=== PATIENT | female | born 1940 | race Caucasian/White ===

== ENCOUNTER → 2016-11-11 | Day surgery (SDC) | payer MEDICARE, OTHER ==
[~2016-11-11] MED LIST: ADVIL200 M1 PO; ALBUTEROL0.83 MG/ML INH; CELEXA10 M1 PO; CLARITIN10 M2 PO; FLONASE ALLERG9.9 ML; HYDROCHLOROTHIA25 MG PO; LISINOPRIL10 MG PO; MONTELUKAST SOD10 MG PO; NORVASC10 MG PO; OMEPRAZOLE40 M1 PO; SYMBICORT INH; VENTOLIN INH
--- NOTE | ~2016-11-11 | OR ---
Unit #: [id number] #: [id number] Patient: ROBYN GUNN [id number] [address] [address] [id number] O MR#: [id number] NAME: ROBYN GUNN ROOM: Date of Procedure: 11/11/2016 Admission Date: 11/11/2016 Surgeon: Maximiliano Arellano M.D. : 1940 Attending Physician: Maximiliano Arellano M.D. OPERATIVE REPORT PRIMARY CARE PHYSICIAN Luigi Mejía M.D. PREOPERATIVE DIAGNOSIS The patient has presented with history of dysphagia. In addition, she needs a colorectal cancer screening and has come for screening colonoscopy. PROCEDURES PERFORMED 1. Upper gastrointestinal endoscopy and biopsy. 2. Upper gastrointestinal endoscopy and balloon dilation of distal esophageal stricture as well as colonoscopy with polypectomy. POSTOPERATIVE DIAGNOSES For upper endoscopy: 1. The patient had tight stricture in the distal esophagus. This was dilated using a 15 to 18 mm TTS balloon. 2. Small hiatus hernia. 3. Mild antral gastritis. 4. Rest of examination up to third part of duodenum was normal. A biopsy was obtained from the antrum for CLOtest. The distal esophageal stricture was dilated using a 15 to 18 mm TTS balloon. For colonoscopy: 1. The patient had 2 sessile polyps, 1 each in the sigmoid colon and rectum. The rectal polyp was about 2 cm in size and the sigmoid polyp was about 6 to 8 mm in size. Both were removed using snare polypectomy. In addition, the patient had moderate sigmoid and descending colon diverticulosis. 2. Rest of the examination up to cecum and terminal ileum was normal. The quality of prep was excellent. RECOMMENDATIONS 1. The patient is being started on omeprazole 40 mg p.o. b.i.d. She should increase the dose from 40 mg once a day to 40 mg b.i.d. 2. She will require repeat dilation with an 18 to 20 mm balloon and this was scheduled for 01/2017. 3. Follow up results of polyp histology. 4. Repeat colonoscopy in 5 years. SEDATION USED MAC. DESCRIPTION OF PROCEDURE Unit #: [id number] #: [id number] Patient: ROBYN GUNN Following detailed explanation of potential risks and complications of an upper endoscopy and a colonoscopy, namely perforation, bleeding, and complications related to sedation, the patient was brought to GI lab and laid in the left lateral decubitus position. Lubricated tip of the Olympus video upper endoscope was passed through the bite block into the proximal esophagus under direct vision. The entire esophageal mucosa was examined, the patient was noted to have distal esophageal benign stricture. This was quite tight and was dilated to some extent by the shaft of the upper GI scope. The scope was then advanced into the gastric cavity after traversing a small to medium sized hiatus hernia. Mucosa of the fundus, body, and antrum was examined. Mild antral erythema was noted indicating antral gastritis. Pylorus was intubated with visualization of the normal duodenal bulb and second and third part of the duodenum. Upon withdrawal and retroflexion, incisura, cardia, and greater curve examined and biopsy obtained from the antrum for CLOtest. The scope was withdrawn in the distal esophagus. A 15 to 18 mm TTS balloon was passed through the accessory channel of the scope and step-up dilation of the distal esophageal stricture was done. Minimal bleeding was noted after fracturing the stricture. The area was thoroughly washed with water and good hemostasis was achieved. The scope was then withdrawn all the way up to pharynx. The patient also had evidence of ulcerative esophagitis involving the distal esophagus. The entire esophageal mucosa was examined all the way up to pharynx. No additional findings noted. The examination table was then turned by 180 degrees and the patient positioned for a colonoscopy. A digital rectal examination performed, which was normal. Lubricated tip of the Olympus video colonoscope was inserted through the anus and advanced under direct vision. The scope was advanced and passed up to sigmoid into descending colon. Multiple medium-sized diverticula were seen in this area. The scope tip was then navigated all the way up to cecum with visualization of the ileocecal valve and the appendiceal orifice. Preparation was excellent with good visualization and photodocumentation was obtained. Successive segments of the colonic mucosa were examined upon withdrawal and appeared unremarkable except for 2 sessile polyps. The first one was in the sigmoid colon. It was about 6 to 8 mm in size. It was removed using snare polypectomy. A second polyp was in the rectum and was 2 cm in size and removed using snare cautery polypectomy. Both the polyps were retrieved and sent for histology. Excellent hemostasis was achieved and photodocumentation obtained. Other than the left-sided diverticulosis, no other abnormalities were found. The patient did not have any hemorrhoids at anal verge. The scope was then withdrawn. The patient returned to the recovery area. She tolerated the procedure without any postprocedure complications. Dictated by.Guero Degroot/wicho TD: 11/12/2016 01:57 JOB #: [id number] CC: Luigi Mejía M.D. Unit #: [id number] #: [id number] Patient: ROBYN GUNN OPERATIVE REPORT X Maximiliano Arellano MD X PROCEDURE OPERATIVE NOTE
== END | disposition home or self-care (01) ==
LOC: COPS 11:34
DX: K22.2 Esophageal obstruction (principal); K44.9 Diaphragmatic hernia without obstruction or gangrene; Z12.11 Encounter for screening for malignant neoplasm of colon; D12.5 Benign neoplasm of sigmoid colon; D12.8 Benign neoplasm of rectum; K29.70 Gastritis, unspecified, without bleeding; K57.30 Diverticulosis of large intestine without perforation or abscess without bleeding
CPT/HCPCS: 87077; 88305

== ENCOUNTER → 2017-02-08 | Day surgery (SDC) | payer MEDICARE, OTHER ==
--- NOTE | ~2017-02-08 | OR ---
Unit #: [id number] #: [id number] Patient: ROBYN GUNN [id number] [address] [address] [id number] O MR#: [id number] NAME: ROBYN GUNN ROOM: Date of Procedure: 02/08/2017 Admission Date: 02/08/2017 Surgeon: Maximiliano Arellano M.D. : 1940 Attending Physician: Maximiliano Arellano M.D. Primary Care Physician: Elizabeth Pyle M.D. OPERATIVE REPORT PREOPERATIVE DIAGNOSES Dysphagia. The patient has history of esophageal stricture, status post dilation. Last time, dilation was done up to 18 mm. She has mild residual symptoms. PROCEDURES PERFORMED Upper gastrointestinal endoscopy and dilation with a TTS balloon. POSTOPERATIVE DIAGNOSES 1. The patient had benign stricture in the distal esophagus. The overall appearances were lot better than last time. The stricture was dilated to a maximum of 20 mm with 18- to -20 mm TTS balloon. 2. Small hiatus hernia. 3. Rest of the examination up to third part of duodenum was normal. RECOMMENDATIONS The patient will continue on omeprazole on a long-term basis. She will be followed up in the office in 3 to 4 months' time. SEDATION USED MAC. DESCRIPTION OF PROCEDURE Following detailed explanation of potential risks and complications of an upper endoscopy, namely perforation, bleeding, and complication related to sedation, the patient was brought to GI lab and laid in the left lateral decubitus position. Lubricated tip of the Olympus video upper endoscope was passed through the bite block into the proximal esophagus under direct vision. The entire esophageal mucosa was examined. The patient was noted to have distal esophageal benign stricture with a classic appearance. The overall appearances are lot better than before. The scope was then advanced into the gastric cavity and the latter was insufflated. Mucosa of the fundus, body, and antrum was examined and appeared unremarkable. Pylorus was intubated with visualization of normal duodenal bulb and second and third part of the duodenum. Upon withdrawal and retroflexion, incisura, cardia, and greater curve was examined and a small hiatus hernia was noted. The scope was then withdrawn in the distal esophagus. An 18- to -20 mm TTS balloon was passed through the accessory channel of the scope and step-up dilation of the distal esophageal stricture was done. Minimal bleeding was noted after effective dilation. The scope was then withdrawn all the way up to pharynx. No additional findings were noted. The patient tolerated the procedure without any postprocedure Unit #: [id number] #: [id number] Patient: ROBYN GUNN complications. Dictated by... Guero Velázquez/wicho TD: 02/09/2017 00:54 JOB #: [id number] OPERATIVE REPORT Page 1 of 1 X Maximiliano Arellano MD X PROCEDURE OPERATIVE NOTE
== END | disposition home or self-care (01) ==
LOC: COPS 06:47
DX: K22.2 Esophageal obstruction (principal); K44.9 Diaphragmatic hernia without obstruction or gangrene; I10 Essential (primary) hypertension; J45.909 Unspecified asthma, uncomplicated; Z87.891 Personal history of nicotine dependence; Z86.79 Personal history of other diseases of the circulatory system